=== PATIENT | female | born 1930 ===

== ENCOUNTER 2020-08-28 08:30 | Outpatient (CLI) | payer OTHER | END 2020-08-28 18:00 | disposition home or self-care (01) | LOC: LAB 08:30 | PROVIDERS: ATTEND Internal Medicine Cardiovascular Disease | DX: I10 Essential (primary) hypertension (principal); E11.9 Type 2 diabetes mellitus without complications; E03.8 Other specified hypothyroidism; E78.2 Mixed hyperlipidemia; Z12.11 Encounter for screening for malignant neoplasm of colon; E55.9 Vitamin D deficiency, unspecified; M46.47 Discitis, unspecified, lumbosacral region; M19.90 Unspecified osteoarthritis, unspecified site ==

== ENCOUNTER 2020-08-30 08:49 | Inpatient (IN) | payer OTHER ==
[~2020-08-30] VITALS: Ht 149.9 cm; Wt 40.8 kg
[2020-08-31] MEDS ORDERED: OMEPRAZOLE20 MG (08:34)
[2020-08-31] MEDS ORDERED: INDAPAMIDE1.25 MG (08:34)
[2020-08-31] MEDS ORDERED: LEVOTHYROXINE25 MC1 (08:34)
[2020-08-31] MEDS ORDERED: MEMANTINE HCL10 MG (08:34)
[2020-08-31] MEDS ORDERED: QUETIAPINE FUM100 MG (08:35)
[2020-08-31] MEDS ORDERED: SERTRALINE HCL100 MG (08:35)
[2020-08-31] MEDS ORDERED: PROTECT IRON T1 EACH (08:35)
[2020-08-31] MEDS ORDERED: DONEPEZIL HCL10 MG (08:35)
[2020-08-31] MEDS ORDERED: LORATADINE10 MG (08:35)
== END 2020-09-02 12:58 | disposition home or self-care (01) | DRG 812 ==
LOC: MEDJ 08:49
PROVIDERS: ADMIT Internal Medicine Cardiovascular Disease; ATTEND Internal Medicine Cardiovascular Disease
PROC: 30233N1 Transfusion of Nonautologous Red Blood Cells into Peripheral Vein, Percutaneous Approach (ICD-10-PCS; principal; 2020-08-30)
PROC: 3E0F7SF Introduction of Other Gas into Respiratory Tract, Via Natural or Artificial Opening (ICD-10-PCS; 2020-08-30)
DX: D64.9 Anemia, unspecified (principal); I25.10 Atherosclerotic heart disease of native coronary artery without angina pectoris; G30.9 Alzheimer's disease, unspecified; F02.80 Dementia in other diseases classified elsewhere, unspecified severity, without behavioral disturbance, psychotic disturbance, mood disturbance, and anxiety

== ENCOUNTER 2020-10-02 10:51 | Outpatient (CLI) | payer OTHER ==
[~2020-10-02 10:51] MED LIST: DONEPEZIL HCL10 MG; INDAPAMIDE1.25 MG; LEVOTHYROXINE25 MC1; LORATADINE10 MG; MEMANTINE HCL10 MG; OMEPRAZOLE20 MG; PROTECT IRON T1 EACH; QUETIAPINE FUM100 MG; SERTRALINE HCL100 MG
== END 2020-10-02 11:01 | disposition home or self-care (01) ==
LOC: TOM 10:51
PROVIDERS: ATTEND Psychiatry & Neurology Clinical Neurophysiology
DX: G30.1 Alzheimer's disease with late onset (principal)

== ENCOUNTER 2020-10-08 10:34 | Emergency (ER) | payer OTHER ==
[~2020-10-08] VITALS: Ht 154.9 cm; Wt 47.2 kg
== END 2020-10-08 14:53 | disposition home or self-care (01) ==
LOC: ER 10:34
DX: S20.212A Contusion of left front wall of thorax, initial encounter (principal); W18.09XA Striking against other object with subsequent fall, initial encounter; Y93.89 Activity, other specified; Y92.018 Other place in single-family (private) house as the place of occurrence of the external cause; Y99.8 Other external cause status

== ENCOUNTER 2020-10-08 15:13 | Outpatient (CLI) | payer OTHER | END 2020-10-08 15:18 | disposition home or self-care (01) | LOC: LAB 15:13 | PROVIDERS: ATTEND Internal Medicine Cardiovascular Disease | DX: E03.9 Hypothyroidism, unspecified (principal); I10 Essential (primary) hypertension; E11.9 Type 2 diabetes mellitus without complications; E78.2 Mixed hyperlipidemia; Z12.11 Encounter for screening for malignant neoplasm of colon ==

== ENCOUNTER 2020-11-21 11:28 | Outpatient (CLI) | payer OTHER | END 2020-11-21 11:33 | disposition home or self-care (01) | LOC: RAD 11:28 | PROVIDERS: ATTEND Internal Medicine Cardiovascular Disease | DX: I10 Essential (primary) hypertension (principal) ==

== ENCOUNTER 2020-12-05 09:43 | Outpatient (CLI) | payer OTHER | END 2020-12-05 09:47 | disposition home or self-care (01) | LOC: LAB 09:43 | PROVIDERS: ATTEND Internal Medicine Cardiovascular Disease | DX: D63.8 Anemia in other chronic diseases classified elsewhere (principal) ==

== ENCOUNTER 2021-05-23 09:08 | Inpatient (IN) | payer OTHER ==
[~2021-05-23] VITALS: Ht 144.8 cm; Wt 39.0 kg
--- NOTE | 2021-05-23 09:29 | NUR ---
SE RECIBE PT FEMENINA DE 89 ANOS ALERTA Y ORIENTADAX3 LLEGA POR REFERIDO DEL . SE UBICA EN OBSERVACION Y SE MONITOREAN S/V.
--- NOTE | 2021-05-23 10:00 | NUR ---
SE ORIENTA A FAMILIAR Y PACIENTE SOBRE TRATAMIENTO ORDENADO POR DR. HENLEY, LA MISMA VERBALIZA ENTENDER. PETE PORTILLO COLECTA MUESTRAS ORDENADAS, Y TUBOS PILOTOS PARA 4 UNIDADES DE PRBC FRACCIONADAS PARA TRANSFUNDIR. COLOCAN 2 VENOPUNCIONES #24 #20 EN BRAZO R+ PATENTE, LIBRES DE ERITEMA Y EDEMA, SE CONECTA AL MOMENTO 0.9 NSS 1000ML A 100ML/HR. SE ORIENTA A FAMILIAR SOBRE PROCESO DE TRANSFUSION Y SE HACE ENTREGA DE CONSENTIMIENTO, FAMILIAR FIRMA EL MISMO. SE COMUNICA CON PERSONAL DE BANCO DE KERVIN MR CAR[place], EL MISMO REFIERE QUE PACIENTE TIENE RECORD, POR LO QUE NO SE MANI TERCER TUBO SIS. PETE CARLTON COLOCA SONDA URINARIA PATENTE, COLECTANDO ORINA A GRAVEDAD COLOR AMARILLO INTENSO, CON PRESENCIA DE SEDIMENTACION. PETE CARLTON REALIZA REQUISICION PARA 4 UNIDADES DE PRBC FRACCIONADAS, ROTULA ADECUADAMENTE TUBOS PILOTOS Y ENVIA PERSONALMENTE LOS MISMOS.
== END 2021-06-21 17:53 | disposition home or self-care (01) | DRG 811 ==
LOC: ER 09:08 → MEDJ 16:22 → SEC-K 16:22 → MEDJ 23:01
PROVIDERS: ADMIT Internal Medicine; ATTEND Internal Medicine
PROC: 30233N1 Transfusion of Nonautologous Red Blood Cells into Peripheral Vein, Percutaneous Approach (ICD-10-PCS; principal; 2021-05-24)
PROC: BW25Y0Z Computerized Tomography (CT Scan) of Chest, Abdomen and Pelvis using Other Contrast, Unenhanced and Enhanced (ICD-10-PCS; 2021-05-27)
PROC: 02HV33Z Insertion of Infusion Device into Superior Vena Cava, Percutaneous Approach (ICD-10-PCS; 2021-05-30)
PROC: B246ZZZ Ultrasonography of Right and Left Heart (ICD-10-PCS; 2021-05-31)
PROC: BB4CZZZ Ultrasonography of Mediastinum (ICD-10-PCS; 2021-06-05)
PROC: 0W9930Z Drainage of Right Pleural Cavity with Drainage Device, Percutaneous Approach (ICD-10-PCS; 2021-06-06)
PROC: 0W9930Z Drainage of Right Pleural Cavity with Drainage Device, Percutaneous Approach (ICD-10-PCS; 2021-06-06)
PROC: 4A033R1 Measurement of Arterial Saturation, Peripheral, Percutaneous Approach (ICD-10-PCS; 2021-06-14)
PROC: 0DH63UZ Insertion of Feeding Device into Stomach, Percutaneous Approach (ICD-10-PCS; 2021-06-20)
PROC: 3E0G76Z Introduction of Nutritional Substance into Upper GI, Via Natural or Artificial Opening (ICD-10-PCS; 2021-06-20)
DX: D50.0 Iron deficiency anemia secondary to blood loss (chronic) (principal); I21.4 Non-ST elevation (NSTEMI) myocardial infarction; N39.0 Urinary tract infection, site not specified; J91.8 Pleural effusion in other conditions classified elsewhere; J98.11 Atelectasis; R18.8 Other ascites; E46 Unspecified protein-calorie malnutrition; E03.8 Other specified hypothyroidism; I25.10 Atherosclerotic heart disease of native coronary artery without angina pectoris; I11.9 Hypertensive heart disease without heart failure; G30.8 Other Alzheimer's disease; F02.80 Dementia in other diseases classified elsewhere, unspecified severity, without behavioral disturbance, psychotic disturbance, mood disturbance, and anxiety; R13.19 Other dysphagia; Z87.11 Personal history of peptic ulcer disease; Z20.822 Contact with and (suspected) exposure to COVID-19; L89.152 Pressure ulcer of sacral region, stage 2; B96.29 Other Escherichia coli [E. coli] as the cause of diseases classified elsewhere; B95.2 Enterococcus as the cause of diseases classified elsewhere